=== PATIENT | female | born 1970 | race Caucasian/White ===

== ENCOUNTER 2020-11-07 14:34 | Emergency (ER) | payer OTHER ==
[2020-11-07 14:41] VITALS: BP 135/89; PULSE 75; RESP 18; TEMP 98.2
--- NOTE | 2020-11-07 15:41 | ED ---
General Adult HPI - General Chief complaint: Alcohol Stated complaint: Mental Health Time Seen by Provider: 11/07/20 15:06 Source: patient, RN notes reviewed, old records reviewed Mode of arrival: ambulatory Limitations: no limitations - History of Present Illness Initial comments: Patient is a 50-year-old female withno pain past medical history with a history of daily alcohol use presents emergency department after being brought by her parents for acute alcohol intoxication. They also state that she is under a lot of stress. They wanted her to talk to a doctor. Patient currently denies any suicidal or homicidal ideations, attempts, plans. She denies any visual or auditory hallucinations. She states she has been under more stress lately which is causing her to drink more. 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 Patient's parents state that she is more sober now and they believe that she can go home with them, however we discussed at length the possibility of her following up with the psychiatrist or therapist. She'll be given resources for this. Patient otherwise denies any nausea, vomiting, abdominal pain, and weakness, numbness, headaches, fevers, chills, cough, difficulty breathing, chest pain. She has no other acute complaint at this time. Denies any other drug use. - Related Data Allergies Allergy/AdvReac Type Severity Reaction Status Date / Time No Known Allergies Allergy Verified 11/07/20 14:40 Review of Systems ROS Statement: Those systems with pertinent positive or pertinent negative responses have been documented in the HPI. Review of Systems: CONST: Denies fever EYES: Denies blurry vision ENT: Denies nasal congestion C/V: Denies Chest pain RESP: Denies shortness of breath GI: Denies abdominal pain : Denies dysuria SKIN: Denies rash. MSK: Denies joint pain. NEURO: Denies headache PSYCH: Denies suicidal and homicidal ideations/plans/attempts. Denies visual or auditory hallucinations. ROS Other: All systems not noted in ROS Statement are negative. Past Medical History Past Medical History: No Reported History Past Surgical History: No Surgical Hx Reported Smoking Status: Current every day smoker Past Alcohol Use History: Abuse, Daily Past Drug Use History: None Reported General Exam - General Exam Comments Initial Comments: General: Appears in no acute distress. She does appear acutely intoxicated with alcohol. HEAD: Normal with no signs of head trauma. EYES: PERRLA, EOMI, conjunctiva normal, no discharge. ENT: Hearing grossly intact, normal oropharynx. RESPIRATORY: Clear breath sounds bilaterally. No wheezes, rales, or rhonchi. C/V: Regular rate and rhythm. S1 and S2 auscultated, no edema, peripheral pulses 2+ and intact throughout ABD: Abd is soft, nontender, nondistended EXT: Normal range of motion, no obvious deformity SKIN: No rashes or lesions observed on exposed skin. NEURO: Alert and oriented x 4. Cranial nerves II-XII intact. No focal sensory or strength deficits. Patient is able to ambulate without difficulty. Limitations: no limitations Course Vital Signs 11/07/20 14:37 Temperature 98.2 F Pulse Rate 75 Respiratory 18 Rate Blood Pressure 135/89 O2 Sat by Pulse 96 Oximetry Medical Decision Making - Medical Decision Making Based on the patient's presentation and physical exam, her parents brought to the emergency department for alcohol intoxication to be seen by the doctor. They do feel comfortable taking her home. They've no specific concerns other than this. I did discuss with the patient if she would like to quit alcohol, which she is not willing to at this time. She denies any suicidal or homicidal ideations, attempts, plans. Denies any hallucinations. She is not a danger to herself or others at this time. Parents are willing to take her home as long as she gets follow-up information for psychiatry. We did discuss that if she were to stay to speak with psychiatry, she will not be sober until 2 AM when they will evaluate her. They would prefer outpatient follow-up. I do believe it is safe for her to go home under the care of her parents. They were in agreement with this plan. I spoke with [facility] who will print off Resources for the patient's home town for psychiatry as well as therapy. At this time I do believe it is safe for the patient be discharged home. Patient be discharged home into the care of her family members will drive her home as she is still acutely intoxicated with alcohol. Patient is therefore discharged home in fair condition. I instructed the patient to follow up with their PCP in the next 3 days. I provided contact information for follow up with psychiatry. I explained that the patient should return to the emergency department if they experience any worsening symptoms. Strict return precautions were discussed with the patient. The patient expressed understanding of these instructions. I answered all questions that the patient had. The patient was discharged home in fair condition with their prescriptions and follow up information. Disposition Clinical Impression: Alcoholic intoxication, Stress Disposition: HOME SELF-CARE Condition: Fair Instructions (If sedation given, give patient instructions): Alcohol Intoxication (ED) Is patient prescribed a controlled substance at d/c from ED?: No Referrals: None,Stated [Primary Care Provider] - 1-2 days Jaspreet Russell MD [STAFF PHYSICIAN] - 1-2 days
== END 2020-11-07 15:50 | disposition home or self-care (01) ==
LOC: EC 14:34
DX: F10.129 Alcohol abuse with intoxication, unspecified (principal); F43.9 Reaction to severe stress, unspecified; F17.200 Nicotine dependence, unspecified, uncomplicated; Y90.8 Blood alcohol level of 240 mg/100 ml or more
CPT/HCPCS: 82075; 99283